=== PATIENT | female | born 1960 | race Caucasian/White ===

== ENCOUNTER 2019-09-21 10:47 | Outpatient (CLI) | payer BC, SELFPAY ==
--- NOTE | ~2019-09-21 | MM_ITS ---
EXAMINATION: MM screening [facility] BI w javan HISTORY: Screening mammogram TECHNIQUE: Craniocaudal and mediolateral oblique 3-D tomosynthesis images were obtained and synthetic 2-D images were generated. CAD analysis was submitted and interpreted. COMPARISON: 06/27/2018, 07/19/2014 bilateral digital screening mammogram examinations BREAST PARENCHYMAL COMPOSITION: The breasts are heterogeneously dense, which may obscure small masses . FINDINGS: Possible 4 mm mass is suggested in the lower mid right breast posteriorly (CC Tomosynthesis image 16/80). Diagnostic right mammogram and right breast ultrasound examination are recommended. Otherwise there is no evidence of suspicious mass, calcification, or architectural distortion to sugg est malignancy in either breast. There has been no other suspicious interval change. IMPRESSION: 1. 4 mm mass suggested in the lower posterior mid right breast 2. Diagnostic right mammogram and right breast ultrasound examination are recommended. BI-RADS Category 0: Incomplete: Needs additional imaging evaluation. Reviewed, dictated and finalized at location A. IMPRESSION: 1. 4 mm mass suggested in the lower posterior mid right breast 2. Diagnostic right mammogram and right breast ultrasound examination are recom mended. BI-RADS Category 0: Incomplete: Needs additional imaging evaluation.
== END 2019-09-21 10:48 | disposition home or self-care (01) ==
PROVIDERS: PCP Family Medicine; Visit Provider Obstetrics & Gynecology Gynecology
DX: Z12.31 Encounter for screening mammogram for malignant neoplasm of breast (principal); R92.8 Other abnormal and inconclusive findings on diagnostic imaging of breast
CPT/HCPCS: 77063; 77067

== ENCOUNTER → 2019-10-01 09:23 | Outpatient (CLI) | payer BC, SELFPAY ==
--- NOTE | ~2019-10-01 | MMUS_ITS ---
EXAMINATION: MM diagnostic mammo unilat RT, US breast RT complete HISTORY: Follow-up possible right breast mass TECHNIQUE: Additional 3-D tomosynthesis images of the right breast were performed and synthetic 2-D i mages were generated. CAD analysis was submitted and interpreted. High resolution right breast ultras ound was performed. COMPARISON: Comparison to multiple prior studies sequentially, with oldest reviewed study dated 05/2014. FINDINGS: MAMMOGRAPHIC FINDINGS: The breasts are heterogenously dense, which may obscure small masses. There are no suspicious masses, calcifications or architectural distortion is identified. ULTRASOUND: High-resolution right breast ultrasound: Normal heterogeneous echotexture without focal solid or cyst ic mass. IMPRESSION: 1. No mammographic or sonographic evidence for malignancy in the right breast. 2. Routine yearly screening mammogram and regular clinical breast examination are recommended. BI-RADS Category 1: Negative Reviewed, dictated and finalized at location A. IMPRESSION: 1. No mammographic or sonographic evidence for malignancy in the right breast. 2. Routine yearly screening mammogram and regular clinical breast examination a re recommended. BI-RADS Category 1: Negative
== END ==
PROVIDERS: Visit Provider Obstetrics & Gynecology Gynecology
DX: R92.8 Other abnormal and inconclusive findings on diagnostic imaging of breast (principal)
CPT/HCPCS: 76641; 77065

== ENCOUNTER → 2020-12-10 10:44 | Outpatient (CLI) | payer BC, SELFPAY ==
--- NOTE | ~2020-12-10 | MM_ITS ---
EXAMINATION: MM screening trace BI w javan HISTORY: Screening TECHNIQUE: Craniocaudal and mediolateral oblique 3-D tomosynthesis images were obtained and synthetic 2-D images were generated. CAD analysis was submitted and interpreted. COMPARISON: Comparison to multiple prior studies sequentially, with oldest reviewed study dated 05/2014. BREAST PARENCHYMAL COMPOSITION: The breasts are heterogeneously dense, which may obscure small masses . FINDINGS: There is no evidence of suspicious mass, calcification, or architectural distortion to sugg est malignancy in either breast. There has been no suspicious interval change. IMPRESSION: 1. No mammographic evidence of malignancy. 2. Recommend routine screening mammography in one year. BI-RADS Category 1: Negative Reviewed, dictated and finalized at location A.
== END ==
PROVIDERS: Visit Provider Obstetrics & Gynecology Gynecology
DX: Z12.31 Encounter for screening mammogram for malignant neoplasm of breast (principal)
CPT/HCPCS: 77063; 77067

== ENCOUNTER → 2021-01-24 18:10 | Outpatient (CLI) | payer BC, SELFPAY ==
--- NOTE | ~2021-01-24 | DEXA_ITS ---
Bone Density Report Name: Estrella Thompson Age: 60 Sex: Female Ethnicity: White Date of : 1960 Indication: postmenopausal; screening for osteoporosis; height loss; Referring Provider: FELICE ROMERO Study: Bone densitometry was performed. Exam Date: January 24, 2021 Accession number: [id number] Bone Density: Region BMD T-score Z-score Classification AP Spine (L1-L4) 1.198 1.4 2.7 Normal Femoral Neck (Left) 0.783 -0.6 0.7 Normal Total Hip (Left) 1.053 0.9 1.8 Normal Femoral Neck (Right) 0.848 0.0 1.2 Normal Total Hip (Right) 1.023 0.7 1.6 Normal Total Hip Mean 1.038 0.8 1.7 Normal World Health Organization criteria for BMD impression classify patients as: Normal (T-score at or above -1.0), Osteopenia (T-score between -1.0 and -2.5), or Osteoporosis (T-score at or below -2.5). 10-year Fracture Risk: FRAX not reported because: All T-scores for Spine Total, Hip Total, Femoral Neck at or above -1.0 Previous Exams: Region Exam Age BMD T-score BMD Change BMD Change Date g/cm2 vs Baseline vs Previous AP Spine(L1-L4) 01/24/2021 60 1.198 1.4 -0.007 -0.007 06/27/2018 57 1.204 1.4 Total Hip(Left) 01/24/2021 60 1.053 0.9 -0.023 -0.023 06/27/2018 57 1.075 1.1 Total Hip(Right) 01/24/2021 60 1.023 0.7 -0.024 -0.024 06/27/2018 57 1.047 0.9 *Denotes significance at 95% confidence level, LSC for AP Spine = 0.022 g/cm2, LSC for Total Hip = 0.027 g/cm2 Clinical Information Provided by Patient: Patient maximum height was 67.5 Menopause Age: 52 Drinks caffeinated beverages Onset of menses at age 15 Number of children 1 Impression: The patient has normal bone mass. No significant bone loss was observed. Discussion: BONE DENSITY IS ABOVE THE MINIMUM DESIRABLE LEVEL AT ALL SKELETAL SITES TESTED. This patient?s bone mineral density is above the minimum desirable level (T-score -1.0 or better) at all sites measured. The patient should follow a healthful lifestyle (good nutrition with adequate calcium and vitamin D, and appropriate weight-bearing exercise). Follow-Up: Consider repeating this study in 5 years or sooner if there is some new clinical indication. Reported by: CAMERON on 01/24/2021 6:29:00 PM. Reviewed, dictated and finalized at location APanfilo ESCOBEDO
== END ==
PROVIDERS: Visit Provider Obstetrics & Gynecology Gynecology
DX: Z78.0 Asymptomatic menopausal state (principal)
CPT/HCPCS: 77080

== ENCOUNTER → 2022-05-24 16:00 | Outpatient (CLI) | payer BC, SELFPAY ==
--- NOTE | ~2022-05-24 | MM_ITS ---
EXAMINATION: MM screening trace BI w javan HISTORY: Screening mammogram TECHNIQUE: Craniocaudal and mediolateral oblique 3-D tomosynthesis images were obtained and synthetic 2-D images were generated. CAD analysis was submitted and interpreted. COMPARISON: 12/10/2020 bilateral screening mammogram 10/06/2019 diagnostic right mammogram and complete right breast ultrasound, reported negative 09/21/2019, 06/27/2018 bilateral screening mammogram examinations BREAST PARENCHYMAL COMPOSITION: The breasts are heterogeneously dense, which may obscure small masses . FINDINGS: There is no evidence of suspicious mass, calcification, or architectural distortion to sugg est malignancy in either breast. There has been no suspicious interval change. IMPRESSION: 1. No mammographic evidence of malignancy. 2. Recommend routine screening mammography in one year. BI-RADS Category 1: Negative Reviewed, dictated and finalized at location A. OR PAYROLL ADMINISTRATOR
== END ==
PROVIDERS: PCP Obstetrics & Gynecology Gynecology; Visit Provider Obstetrics & Gynecology Gynecology
DX: Z12.31 Encounter for screening mammogram for malignant neoplasm of breast (principal)
CPT/HCPCS: 77063; 77067

== ENCOUNTER 2023-08-09 11:10 | Outpatient (CLI) | payer BC, SELFPAY ==
--- NOTE | ~2023-08-09 | MM_ITS ---
EXAMINATION: MM screening trace BI w javan HISTORY: Screening mammogram TECHNIQUE: Craniocaudal and mediolateral oblique 3-D tomosynthesis images were obtained and synthetic 2-D images were generated. Bilateral lateral rotated CC views. CAD analysis was submitted and interp reted. COMPARISON: May 24, 2022, December 10, 2020, 09/21/2019, 06/27/2018, 07/02/2014 bilateral screening mammogram examinations BREAST PARENCHYMAL COMPOSITION: The breasts are heterogeneously dense, which may obscure small masses . FINDINGS: Focal approximately 4.9 mm asymmetric opacity is noted deep in the posterior mid outer left breast, not evident on prior mammographic examinations. Diagnostic left mammogram and left breast ul trasound examination recommended. Otherwise there is no evidence of suspicious mass, calcification, or architectural distortion to sugg est malignancy in either breast. There has been no other suspicious interval change. IMPRESSION: 1. Focal approximately 4.9 mm asymmetric opacity in the posterior outer mid left breast 2. Diagnostic left mammogram and left breast ultrasound examination recommended BI-RADS Category 0: Incomplete: Needs additional imaging evaluation. Reviewed, dictated and finalized at location B. IMPRESSION: 1. Focal approximately 4.9 mm asymmetric opacity in the posterior outer mid lef t breast 2. Diagnostic left mammogram and left breast ultrasound examination recommended BI-RADS Category 0: Incomplete: Needs additional imaging evaluation.
== END 2023-08-09 11:11 ==
LOC: MICIMG 11:13
PROVIDERS: PCP Nurse Practitioner; Visit Provider Nurse Practitioner
DX: Z12.31 Encounter for screening mammogram for malignant neoplasm of breast (principal); R92.8 Other abnormal and inconclusive findings on diagnostic imaging of breast
CPT/HCPCS: 77063; 77067

== ENCOUNTER 2023-09-20 08:02 | Outpatient (CLI) | payer BC, SELFPAY ==
--- NOTE | ~2023-09-20 | MMUS_ITS ---
EXAMINATION: MM diagnostic trace LT w javan, US breast LT complete HISTORY: Follow-up focal asymmetric opacity of the left breast TECHNIQUE: Additional 3-D tomosynthesis images of the left breast were performed and synthetic 2-D im ages were generated. CAD analysis was submitted and interpreted. High resolution complete left breast ultrasound was performed. COMPARISON: Comparison to multiple prior studies sequentially, with oldest reviewed study dated 06/27. BREAST PARENCHYMAL COMPOSITION: Dense: The breasts are heterogeneously dense, which may obscure small masses FINDINGS: MAMMOGRAPHIC FINDINGS: There is a small mass in the upper outer quadrant of the left breast posterior depth. There are no wood spicious calcifications or architectural distortion. ULTRASOUND: Complete US of all 4 quadrants of the left breast and retroareolar region was reviewed. At 2:00, 5 cm from the nipple there is an oval hypoechoic 6 mm mass, likely a benign cyst complicated cyst. This l ikely corresponds to the mammographic finding. IMPRESSION: 1. Probable benign complicated cyst of the left breast at 2:00, 5 cm from the nipple. 2. Recommend 6 month follow-up diagnostic left mammogram and Limited left breast ultrasound. BI-RADS category 3, probably benign findings. Reviewed, dictated and finalized at location B. IMPRESSION: 1. Probable benign complicated cyst of the left breast at 2:00, 5 cm from the n ipple. 2. Recommend 6 month follow-up diagnostic left mammogram and Limited left breas t ultrasound. BI-RADS category 3, probably benign findings.
== END 2023-09-20 08:03 ==
LOC: MICIMG 08:03
PROVIDERS: PCP Obstetrics & Gynecology Gynecology; Visit Provider Obstetrics & Gynecology Gynecology
DX: R92.8 Other abnormal and inconclusive findings on diagnostic imaging of breast (principal)
CPT/HCPCS: 76641; 77061; 77065; G0279

== ENCOUNTER 2024-05-07 00:37 | Day surgery (SDC) | payer BC, SELFPAY ==
[2024-04-24 15:44] VITALS: BMI 24.4
--- OUTSIDE RECORDS SUMMARY | 2024-05-07 00:40 | XMS_ITS | Clinical Summary ---
Author Organization [facility] [address] Address [address] [place] [address] Care Team Providers Care Stenciling Machine Tender Name Role Phone Cathy Almeida MD Primary Care Provider Allergies No known active allergies Medications cholecalciferol (VITAMIN D-3) 2,000 unit capsule Take 1 capsule (2,000 Units total) by mouth daily 30 capsule 01/12/2019 Active rosuvastatin (CRESTOR) 20 mg tabletIndication s:High cholesterol TAKE 1 TABLET BY MOUTH NIGHTLY 90 tablet 3 02/18/2023 Active Active Problems Problem Noted Date Diagnosed Date High cholesterol 05/30/2022 Resolved Problems Problem Noted Date Diagnosed Date Resolved Date Complex tear of medial menis cus of left knee as current injury 12/25/2018 05/30/2022 Overview (12/25/2018): Added automatically from request for surgery [id number] Immunizations Name Administration Dates Next Due Tdap 11/09/2023 Surgical History Surgery Date Site/Laterality Comments WISDOM TOOTH EXTRACTION MENISCECTOMY Left COLONOSCOPY 12/09/2018 with polypectomy Medical History Medical History Date Comments PONV (postoperative nausea a nd vomiting) Colon polyps High cholesterol Complex tear of medial menis cus of left knee as current injury 12/25/2018 Added automatically from r equest for surgery [id number] Family History Medical History Relation Name Comments Alzheimer's disease Father Hypertension Father Colon cancer Maternal Grandmother Colon cancer Mother Coronary artery disease Mother Hypertension Mother Relation Name Status Comments Father Maternal Grandmother Mother Social History Tobacco Use Types Packs/Day Years Used Date Smoking Tobacco: Never Smokeless Tobacco: Never Tobacco Cessation:Counseling Given: Not Answered Alcohol Use Standard Drinks/Week Comments Yes 7 (1 standard drink = 0.6 oz pur e alcohol) PHQ-2 Answer Date Recorded PHQ-2 Total Score (If total score is 3 or more points, staff should administer the PHQ-9) 0 12/26/2021 Comments No Sex and Gender Information Value Date Recorded Sex Assigned at Not on file Legal Sex Female 12:49 PM HEAVY FORGER HELPER Gender Identity Not on file Sexual Orientation Not on file Obstetrics History Last Filed Vital Signs Vital Sign Reading Time Taken Comments Blood Pressure 108/70 05/30/2022 2:08 PM HEAVY FORGER HELPER Pulse 71 05/30/2022 2:08 PM HEAVY FORGER HELPER Temperature 36.5 C (97.7 F) 01/20/2019 10:29 AM CDT Respiratory Rate 14 10/19/2021 10:17 AM CDT Oxygen Saturation 99% 01/20/2019 10:29 AM CDT Inhaled Oxygen Concentration - - Weight 73 kg (161 lb) 05/30/2022 2:08 PM HEAVY FORGER HELPER Height 168.9 cm (5' 6.5 ) 05/30/2022 2:08 PM HEAVY FORGER HELPER Body Mass Index 25.6 05/30/2022 2:08 PM HEAVY FORGER HELPER Plan of Treatment Health Maintenance Due Date Last Done Comments Hepatitis B Screening 11/09/1979 Zoster Vaccine (1 of 2) 11/09/2011 Cervical Cancer Screening 04/02/20192018, 04/02/2018 Breast Cancer Screening-Mammogram 12/10/2021 12/10/2020, 12/10/2020 Depression Screening 12/26/2022 12/26/2021 Regular Well Visit/Exam 18-64 12/26/2022 12/26/2021 Covid-19 Vaccine ( season) 2023 03/14/2021, 07/14/2020, 06/17/2020 Influenza Vaccine (#1) 2023 Colon Cancer Screening-Colonoscopy 12/10/2023 12/09/2018, 12/09/2018 DTaP/Tdap/Td Vaccine (2 - Td or Tdap) 2033 11/09/2023 Colon Cancer Screening-CT Colonography Discontinued 12/09/2018, 12/09/2018 Colon Cancer Screening-DNA Stool Discontinued 12/09/2018, 12/09/2018 Colon Cancer Screening-FIT Discontinued 12/09, 12/09/2018 Colon Cancer Screening-Sigmoidoscopy Discontinued 12/09/2018, 12/09/2018 Hepatitis C Screening Completed 12/26/2021 Pneumococcal vaccine <65 Aged Out No longer eligible based on patient's age to complete this topic Procedures Procedure Name Priority Date/Time Associated Diagnosis Comments HEPATITIS C ANTIBODY Routine 12/26/2021 9:27 AM CDT Routine physical examination Encounter for hepatitis C screening test for low risk patient MAMMOGRAPHY Routine 12/10/2020 COLONOSCOPY Routine 12/09/2018 PAP SMEAR WITH HPV Routine 04/02/2018 from Last 3 Months or Most Recently Relevant to Health Maintenance Results * Hepatitis C antibody (12/26/2021 9:27 AM CDT) Hep C Ab Nonreactive Nonreactive [facility] Comment: Interpretive Data Nonreactive: Antibodies to HCV not detected. Does NOT exclude the possibility of recent exposure to HCV. Equivocal: Equivocal for HCV antibodies. Supplemental molecular testing will be automatically performed to determine infection status in accordance with current CDC screening recommendations. Reactive: Positive for HCV antibodies. This may represent current or past HCV infection. Supplemental molecular testing will be automatically performed to determine current infection status in accordance with current CDC screening recommendations. Interpretive data was last revised on 2019. Blood 12/26/2021 9:27 AM CDT 12/26/2021 2:31 PM CDT us Cathy Almeida MD LAB MICROBIOLOGY - GEN ERAL ORDERABLES Final Result [facility] [address] Department [place] [address] * MAMMOGRAPHY (12/10/2020) Mammography Normal 12/10/2020 Historical Provider HEALTH MAINTENANCE Final Result * COLONOSCOPY (12/09/2018) Scribed Colonoscopy Abnormal Comment:adenomatous polyps. repeat in 5 yrs per report 12/09/2018 Historical Provider HEALTH MAINTENANCE Final Result * PAP SMEAR WITH HPV (04/02/2018) Scribed Pap Smear w/HPV Normal 04/02/2018 Historical Provider HEALTH MAINTENANCE Final Result from Last 3 Months or Most Recently Relevant to Health Maintenance Insurance [email or web address] OOS [email or web address] Care Teams Stenciling Machine Tender Relationship Specialty Start Date End Date Cathy Almeida MD PCP - General Family Practice 12/26/21
--- OUTSIDE RECORDS SUMMARY | 2024-05-07 00:40 | XMS_ITS | Referral Summary ---
Author Organization [facility] Address [address] [place] [address] Care Team Providers Care Telephone Triage Nurse Name Role Phone Brenna Tesfaye MD Primary Care Provider [phone] Source Comments [facility],non-owned Affiliates and Associated Physician Practices is amultiple site organization consisting of ambulatory clinics and hospital sitesin [place], [place], [place] and [place]. This disclosure is being madepursuant to the Care Everywhere program and may not contain all information available regarding this patient. Last updated 17.[employer] Allergies No known active allergies Medications Be aware that medications may not be up to date on this document. Always verify current medications with the patient. No known medications Social History Tobacco Use Types Packs/Day Years Used Date Smoking Tobacco: Never Smokeless Tobacco: Never Sex and Gender Information Value Date Recorded Sex Assigned at Not on file Gender Identity Not on file Sexual Orientation Not on file Last Filed Vital Signs Vital Sign Reading Time Taken Comments Blood Pressure 102/58 05/15/2017 9:28 AM COMPANY MARKER Pulse 87 05/15/2017 9:28 AM COMPANY MARKER Temperature 37.2 C (99 F) 05/15/2017 9:28 AM COMPANY MARKER Respiratory Rate 16 05/15/2017 9:28 AM COMPANY MARKER Oxygen Saturation 97% 05/15/2017 9:28 AM COMPANY MARKER Inhaled Oxygen Concentration - - Weight 69.9 kg (154 lb) 05/15/2017 9:28 AM COMPANY MARKER Height 170.2 cm (5' 7 ) 05/15/2017 9:28 AM COMPANY MARKER Body Mass Index 24.12 05/15/2017 9:28 AM COMPANY MARKER Plan of Treatment Not on file Care Teams Telephone Triage Nurse Relationship Specialty Start Date End Date Brenna Tesfaye MD [address] [place] [address] [place] [phone] PCP - General 12/10/18
--- OUTSIDE RECORDS SUMMARY | 2024-05-07 00:40 | XMS_ITS | Patient Health Summary ---
Author Organization [facility] [employer] Address [address] [place] [address] Care Team Providers Care Dry Color Tester Name Role Phone Brenna Tesfaye MD Primary Care Provider [phone] Note from [facility] [employer] [facility] [employer],non-owned Affiliates and Associated Physician Practices is amultiple site organization consisting of ambulatory clinics and hospital sitesin [place], [place], [place] and [place]. This disclosure is being madepursuant to the Care Everywhere program and may not contain all information available regarding this patient. Last updated 17.[employer] Allergies No known active allergies Medications Be [...] Comments Blood Pressure 102/58 05/15/2017 9:28 AM NUCLEAR REACTOR ENGINEER Pulse 87 05/15/2017 9:28 AM NUCLEAR REACTOR ENGINEER Temperature 37.2 C (99 F) 05/15/2017 9:28 AM NUCLEAR REACTOR ENGINEER Respiratory Rate 16 05/15/2017 9:28 AM NUCLEAR REACTOR ENGINEER Oxygen Saturation 97% 05/15/2017 9:28 AM NUCLEAR REACTOR ENGINEER Inhaled Oxygen Concentration - - Weight 69.9 kg (154 lb) 05/15/2017 9:28 AM NUCLEAR REACTOR ENGINEER Height 170.2 cm (5' 7 ) 05/15/2017 9:28 AM NUCLEAR REACTOR ENGINEER Body Mass Index 24.12 05/15/2017 9:28 AM NUCLEAR REACTOR ENGINEER Procedures * DERMATOPATHOLOGY(Performed 05/29/2023) * INFLUENZA A+B - POINT OF CARE (AMB)(Performed 05/15/2017) Performed for Influenza B Results * DERMATOPATHOLOGY (05/29/2023 12:00 AM NUCLEAR REACTOR ENGINEER) Case Report Dermatopathology Report Case: [id number] Authorizing Provider: Ilan Noel MD Collected: 05/29/2023 12:00 AM Ordering Location: [facility] - Received: 06/03/2023 07:36 AM DermPath Lab Pathologist: Jade Hughes MD Specimen: Skin, dorsal distal right forearm 2:44 PM [facility] Final Diagnosis Specimen A. SKIN, dorsal distal right forearm: LICHEN PLANUS-LIKE KERATOSIS (BENIGN LICHENOID KERATOSIS) (L82.1) 2:44 PM [facility] DERMATOPATH[facility]OR[facility]ORY Clinical History R/O BCC vs ISK 2:44 PM [facility] Gross Description Specimen A: Received is one formalin filled container labeled with the patients name and designated dorsal distal right forearm. The specimen consists of a shave removal measuring [id number] mm. Jar 0. 2:44 PM [facility] DERMATOPATHOLOGY [facility]ORY Microscopic Description Specimen A. SKIN, dorsal distal right forearm: The epidermis is mildly acanthotic. There is a lichenoid infiltrate with vacuolar changes of basilar keratinocytes and scattered necrotic keratinocytes. 2:44 PM [facility] DERMATOPATHOLOGY [facility]OR[facility]ORY Disclaimer An external and internal positive and negative controls are appropriate for the histochemical, immunohistochemical and immunofluorescence stain(s) in this case (if any), except where stated explicitly. The performance characteristics of the stain(s) cited in this report were developed and its performance characteristic determined by the Dermatopathology Laboratory at [facility], directed by Dr. Felicita Hughes. These tests need not be, and therefore are not, approved by the [place] Food and Drug Administration. The tests are used for clinical purposes. Billing Codes Specimen Charges Stain Charges 26633 1 2:44 PM [facility]ERMATOPATHOLOG[facility]ORY Embedded Images 2:44 PM [facility]MATOP[facility] Pathology/Cytolog y TISSUE SPECIMEN FROM SKIN / Unknown 05/29/2023 06/03/2023 7:36 AM NUCLEAR REACTOR ENGINEER Ilan Noel MD LAB - PATHOLOGY/CYTO LOGY ORDERABLES DERMATOPATHOLOGY LABORATORY [facility] - Department of Dermatology [facility] [address] [place] [address], [address] [phone] * (ABNORMAL) INFLUENZA A+B - POINT OF CARE (AMB) (05/15/2017 9:33 AM NUCLEAR REACTOR ENGINEER) Influenza A Antigen Rapid Negative Negative Influenza B Antigen Rapid Positive(A) Negative Influenza Internal Control Present NEGATIVE - POSITIVE Influenza Lot Number [id number] Influenza Expiration Date 01 21 2019 Other NASOPHARYNGEAL SWAB / Unknown 05/15/2017 9:33 AM NUCLEAR REACTOR ENGINEER Tanvir Decker HEARING AID REPAIR TECHNICIAN-RADIOLOGIC TECHNOLOGIST CHIEF LAB - POINT OF CA RE ORDERABLES Care Teams Dry Color Tester Relationship Specialty Start Date End Date Brenna Tesfaye MD [address] [place] [address] [phone] PCP - General 12/10/18
--- OUTSIDE RECORDS SUMMARY | 2024-05-07 00:40 | XMS_ITS | Encounter Summary ---
Author Organization [facility] Address [address] [place] [address] Care Team Providers Care Ignition Specialist Name Role Phone Brenna Tesfaye MD Primary Care Provider Encounter Details Date Type Department Care Team (Late st Contact Info) Description 06/03/2023 Lab Requisition [facility] - DermPath Lab [address] [place] [id number] Ilan Noel MD [address] [place] [address] Social History Tobacco Use Types Packs/Day Years Used Date Smoking Tobacco: Never Smokeless Tobacco: Never Sex and Gender Information Value Date Recorded Sex Assigned at Not on file Gender Identity Not on file Sexual Orientation Not on file documented as of this encounter Plan of Treatment Not on file documented as of this encounter Procedures Procedure Name Priority Date/Time Associated Diagnosis Comments DERMATOPATHOLOGY Routine 05/29/2023 12:0 0 AM REPAIR ARMATURE WINDER documented in this encounter Results * DERMATOPATHOLOGY (05/29/2023 12:00 AM REPAIR ARMATURE WINDER) Case Report Dermatopathology Report Case: [id number] Authorizing Provider: Ilan Noel MD Collected: 05/29/2023 12:00 AM Ordering Location: [facility] - Received: 06/03/2023 07:36 AM DermPath Lab Pathologist: Jade Hughes MD Specimen: Skin, dorsal distal right forearm 2:44 PM [facility] DERMATOPATHOLOGY LABORATORY Final Diagnosis Specimen A. SKIN, dorsal distal right forearm: LICHEN PLANUS-LIKE KERATOSIS (BENIGN LICHENOID KERATOSIS) (L82.1) 2:44 PM [facility] DERMATOPATHOLOGY LABORATORY Clinical History R/O BCC vs ISK 2:44 PM [facility] DERMATOPATHOLOGY LABORATORY Gross Description Specimen A: Received is one formalin filled container labeled with the patients name and designated dorsal distal right forearm. The specimen consists of a shave removal measuring [id number] mm. Jar 0. 2:44 PM [facility] DERMATOPATHOLOGY LABORATORY Microscopic Description Specimen A. SKIN, dorsal distal right forearm: The epidermis is mildly acanthotic. There is a lichenoid infiltrate with vacuolar changes of basilar keratinocytes and scattered necrotic keratinocytes. 2:44 PM [facility] DERMATOPATHOLOGY LABORATORY Disclaimer An external and internal positive and negative controls are appropriate for the histochemical, immunohistochemical and immunofluorescence stain(s) in this case (if any), except where stated explicitly. The performance characteristics of the stain(s) cited in this report were developed and its performance characteristic determined by the Dermatopathology Laboratory at [facility], directed by Dr. Felicita Hughes. These tests need not be, and therefore are not, approved by the [place] Food and Drug Administration. The tests are used for clinical purposes. Billing Codes Specimen Charges Stain Charges 58761 1 2:44 PM [facility] DERMATOPATHOLOGY LABORATORY Embedded Images 2:44 PM [facility] DERMATOPATHOLOGY LABORATORY Pathology/Cytolog y TISSUE SPECIMEN FROM SKIN / Unknown 05/29/2023 06/03/2023 7:36 AM REPAIR ARMATURE WINDER Ilan Noel MD LAB - PATHOLOGY/CYTO [facility] ORDER[facility]LES DERMATOPATHOLOGY LABORATORY [facility] - Department of Dermatology [address], [address] [phone] documented in this encounter Visit Diagnoses Not on filedocumented in this encounter Care Teams Ignition Specialist Relationship Specialty Start Date End Date Brenna Tesfaye MD NPI: [id number] [place] [address] [address] [place] [id number] PCP - General 12/10/18 documented as of this encounter
--- OUTSIDE RECORDS SUMMARY | 2024-05-07 00:40 | XMS_ITS | Referral Summary ---
Author Organization [facility] Address [address] [place] [address] Care Team Providers Care Advisor Advocate Angel Co Founder Name Role Phone Cathy Almeida MD Primary [...] (12/25/2018): Added automatically from request for surgery [id number] Immunizations Name Administration Dates Next Due Tdap 11/09/2023 Social History Tobacco Use Types Packs/Day Years [...] on file Legal Sex Female 12:49 PM CURRICULUM AND ASSESSMENT COORDINATOR Gender Identity Not on file Sexual Orientation Not on file Last Filed Vital Signs Vital Sign Reading Time Taken Comments Blood Pressure 108/70 05/30/2022 2:08 PM CURRICULUM AND ASSESSMENT COORDINATOR Pulse 71 05/30/2022 2:08 PM CURRICULUM AND ASSESSMENT COORDINATOR Temperature 36.5 C (97.7 F) 01/20/2019 10:29 AM CDT Respiratory Rate 14 10/19/2021 10:17 AM CDT Oxygen Saturation 99% 01/20/2019 10:29 AM CDT Inhaled Oxygen Concentration - - Weight 73 kg (161 lb) 05/30/2022 2:08 PM CURRICULUM AND ASSESSMENT COORDINATOR Height 168.9 cm (5' 6.5 ) 05/30/2022 2:08 PM CURRICULUM AND ASSESSMENT COORDINATOR Body Mass Index 25.6 05/30/2022 2:08 PM CURRICULUM AND ASSESSMENT COORDINATOR Plan of Treatment Not on file Procedures Procedure Name Priority Date/Time Associated Diagnosis [...] CDT) Hep C Ab Nonreactive Nonreactive [facility] Comment: Interpretive Data Nonreactive: Antibodies to HCV [...] 9:27 AM CDT 12/26/2021 2:31 PM CDT Cathy Almeida MD LAB MICROBIOLOGY - [place] [address] [address] [facility] [place] [address] * MAMMOGRAPHY (12/10/2020) Mammography Normal 12/10/2020 Historical Provider HEALTH MAINTENANCE Final Result * COLONOSCOPY (12/09/2018) Scribed Colonoscopy Abnormal Comment:adenomatous polyps. repeat in 5 yrs per report 12/09/2018 Historical Provider HEALTH MAINTENANCE Final Result * PAP SMEAR WITH HPV (04/02/2018) Scribed Pap Smear w/HPV Normal 04/02/2018 Historical Provider HEALTH MAINTENANCE Final Result from Last 3 Months or Most Recently Relevant to Health Maintenance Insurance [employer] O[employer] ACCESS OOS Care Teams Advisor Advocate Angel Co Founder Relationship Specialty Start Date End Date Cathy Almeida MD PCP - General Family Practice 12/26/21
--- OUTSIDE RECORDS SUMMARY | 2024-05-07 00:40 | XMS_ITS | Clinical Summary ---
Author Organization [facility] Address [address] [place] [address] Care Team Providers Care Master Fire Control Technician Name Role Phone Brenna Tesfaye MD Primary Care Provider [phone] Source Comments [facility],non-owned Affiliates and Associated Physician Practices is amultiple site organization consisting of ambulatory clinics and hospital sitesin [place], [place], [place] and [place]. This disclosure is being madepursuant to the Care Everywhere program and may not contain all information available regarding this patient. Last updated 17.[email or web address] Allergies No known active allergies Medications Be aware that medications may not be up to date on this document. Always verify current medications with the patient. No known medications Family History Medical History Relation Name Comments Alzheimer's Disease Father Hypertension Father Cancer - Colon Maternal Grandmother Cancer - Colon Mother Hypertension Mother Relation Name Status Comments [...] Comments Blood Pressure 102/58 05/15/2017 9:28 AM DESIGN SALES CONSULTANT Pulse 87 05/15/2017 9:28 AM DESIGN SALES CONSULTANT Temperature 37.2 C (99 F) 05/15/2017 9:28 AM DESIGN SALES CONSULTANT Respiratory Rate 16 05/15/2017 9:28 AM DESIGN SALES CONSULTANT Oxygen Saturation 97% 05/15/2017 9:28 AM DESIGN SALES CONSULTANT Inhaled Oxygen Concentration - - Weight 69.9 kg (154 lb) 05/15/2017 9:28 AM DESIGN SALES CONSULTANT Height 170.2 cm (5' 7 ) 05/15/2017 9:28 AM DESIGN SALES CONSULTANT Body Mass Index 24.12 05/15/2017 9:28 AM DESIGN SALES CONSULTANT Plan of Treatment Health Maintenance Due Date Last Done Comments COLOGUARD (AGES 45-75) - COL ON CA SCREENING 1961 COLON MONITORING 1961 COLONOSCOPY - COLON CA SCREENING 1961 CT COLONOGRAPHY - COLON CA SCREENING 1961 Colorectal Cancer Screening 1961 FIT - COLON CA SCREENING 1961 FLEX SIG - COLON CA SCREENING 1961 LIPID TESTING 1961 MAMMOGRAM 1961 PAP SMEAR 1961 HIV SCREENING 1976 HEPATITIS C SCREENING 11/04/1979 DTAP/TDAP/TD VACCINES (1 - Tdap) 1980 PNEUMOCOCCAL VACCINE 50+ (1 of 1 - PCV) 11/09/2011 ZOSTER VACCINE (1 of 2) 11/09/2011 COVID-19 VACCINE (1 - 2023-2 5 season) 2023 INFLUENZA VACCINE (#1) 2023 DEPRESSION SCREENING 04/01/2024 Respiratory Syncytial Virus (RSV) Vaccine Pt: or over 60 yrs (1 - 1-dose 75+ series) 2036 HEPATITIS B VACCINE Aged Out No longe r eligible based on patient's age to complete this topic HIB VACCINE Aged Out No longer eligi ble based on patient's age to complete this topic HPV VACCINE Aged Out No longer eligi ble based on patient's age to complete this topic MENINGOCOCCAL (Group B) VACCINE Aged Out No longer eligible based on patient's age to complete this topic MENINGOCOCCAL VACCINE Aged Out No bárbara boston eligible based on patient's age to complete this topic PNEUMOCOCCAL VACCINE Aged Out No long er eligible based on patient's age to complete this topic Care Teams Master Fire Control Technician Relationship Specialty Start Date End Date Brenna Tesfaye MD [address] [place] [address] [place] [phone] PCP - General 12/10/18
[2024-05-07 09:43] VITALS: BP 109/76; PULSE 79; RESP 16; TEMP 36; O2SAT 97; BMI 23.8
[2024-05-07] MEDS: LACTATED RINGERS 1,000 ML 150 ML IV CONT (09:51)
--- NOTE | 2024-05-07 09:57 | WPDANESEPPF ---
Anes - Initial Pre Proc Eval Procedure: Operation Date: 05/07/24 11:00 Proposed Procedures p Colonoscopy - Miguel Schultz MD Date/Time: 05/07/24 09:57 Surgeon: Miguel Schultz MD Pre Op Diagnosis: HX of colon polyps Patient Data Age: 63 Gender: F Height: 1.7 m Weight: 69 kg Last Vital Signs Temp 36.0 C L 05/07/24 09:43 Pulse 79 05/07/24 09:43 Resp 16 05/07/24 09:43 BP 109/76 05/07/24 09:43 Pulse Ox 97 05/07/24 09:43 O2 Del Method Room Air 05/07/24 09:43 Allergies Allergy/AdvReac Type Severity Reaction Status Date / Time No Known Allergies Allergy Verified 05/07/24 09:41 Home Medications ?Medication ?Instructions ?Recorded ?Confirmed ?Type rosuvastatin 20 mg tablet 20 mg PO DAILY 04/24/24 05/07/24 History Patient hx anesthesia problems: none Family hx anesthesia problems: none Results Review: All pre-operative results and documents have been reviewed as part of the pre-operative evaluation. [facility] Past Medical History Medical History (Updated 05/07/24 @ 09:57 by Nguyễn Echeverria MD) Hyperlipidemia Surgical History Surgical History (Updated 05/07/24 @ 09:59 by Nguyễn Echeverria MD) H/O arthroscopic knee surgery H/O colonoscopy Family History Family History Mother Carcinoma of colon Grandparent Carcinoma of colon Father Family history of Alzheimer's disease Social History Social History Smoking status: Never smoker Second hand tobacco smoke exposure: Yes Alcohol intake: current Drinks per week: 2 Substance use: never Substance use type: does not use Living arrangements: alone Spiritual care concerns: No Anes - Eval Final PreProcedure Day of Procedure 05/07/24 09:57 Patient weight: normal Heart: regular rate and rhythm Lungs: clear to auscultation Airway: Mallampati scale class II Neurological: alert and oriented Last oral intake: >/= 8 hours ASA classification: II Emergent: no Anesthetic plan: proceed Anesthesia type and monitoring: general GIVS and standard monitoring Results Review: All pre-operative results and documents have been reviewed as part of the pre-operative evaluation. Informed Consent: The patient's anesthetic plan and its attendant risks and benefits were discussed with the patient/family/POA. Questions were solicited and answers provided to the satisfaction of the patient/family/POA.
--- NOTE | 2024-05-07 10:07 | PM.HPGS ---
History of Present Illness History of Present Illness Consent: Risks, benefits, and alternatives have been discussed and questions answered. Patient agrees to proceed with procedure. Chief complaint: HX of colon polyps Narrative: Estrella Thompson is a 63 year old female here for colonoscopy, last one 5 years ago, mother had colon cancer Review of Systems Review of Systems: All systems reviewed & are unremarkable except as noted in HPI and below PMFSH Past Medical History Medical History (Updated 05/07/24 @ 10:08 by Miguel Schultz MD) Family history of colon cancer in mother Hyperlipidemia Surgical History Surgical History (Updated 05/07/24 @ 09:59 by Nguyễn Echeverria MD) H/O arthroscopic knee surgery H/O colonoscopy Family History Family History Mother Carcinoma of colon Grandparent Carcinoma of colon Father Family history of Alzheimer's disease Social History Social History Smoking status: Never smoker Second hand tobacco smoke exposure: Yes Alcohol intake: current Drinks per week: 2 Substance use: never Substance use type: does not use Living arrangements: alone Spiritual care concerns: No Meds Home Medications and Allergies Home Medications ?Medication ?Instructions ?Recorded ?Confirmed ?Type rosuvastatin 20 mg tablet 20 mg PO DAILY 04/24/24 05/07/24 History Allergies Allergy/AdvReac Type Severity Reaction Status Date / Time No Known Allergies Allergy Verified 05/07/24 09:41 Vital Signs Vital Signs - 24 hr 05/07/24 09:43 Temperature 96.8 F L Pulse Rate 79 Respiratory Rate 16 Blood Pressure 109/76 Pulse Oximetry 97 Oxygen Delivery Room Air Exam Const: General: comfortable and no acute distress HENMT: Face/Nose/Sinus: Normal nares present Eyes: General: appearance normal, both eyes and all related structures Neck: Neck: no JVD Resp: Auscultation: clear to auscultation bilaterally Cardio: Rate: regular rate Rhythm: regular rhythm GI: Inspection: non-distended GI Palp: Yes Soft to palpation Skin: General skin exam: normal color Neuro: Speech: normal speech Extrem: General: normal to inspection Psych: Mental Status: mental status grossly normal Assessment and Plan Assessment and plan (1) Family history of colon cancer in mother: Code(s): Z80.0 - Family history of malignant neoplasm of digestive organs Status: Acute Assessment and Plan: colonoscopy
[2024-05-07 10:22] VITALS: BP 103/68; PULSE 76; RESP 23; O2SAT 99
[2024-05-07 10:32] VITALS: BP 103/72; PULSE 67; RESP 18; O2SAT 100
[2024-05-07 10:42] VITALS: BP 113/77; PULSE 64; RESP 19; O2SAT 100
== END 2024-05-07 10:50 | disposition home or self-care (01) ==
PROVIDERS: PCP Family Medicine Sports Medicine; Referring Provider Internal Medicine Gastroenterology; Visit Provider Internal Medicine Gastroenterology
PROC: 0DJD8ZZ Inspection of Lower Intestinal Tract, Via Natural or Artificial Opening Endoscopic (ICD-10-PCS; CPT 45378; principal; 2024-05-07 11:00)
DX: Z12.11 Encounter for screening for malignant neoplasm of colon (principal); D12.0 Benign neoplasm of cecum; K64.8 Other hemorrhoids; E78.5 Hyperlipidemia, unspecified; Z98.890 Other specified postprocedural states; Z80.0 Family history of malignant neoplasm of digestive organs
CPT/HCPCS: 45380; 88305; J2704; J7120

== ENCOUNTER 2024-06-26 08:51 | Outpatient (CLI) | payer BC, SELFPAY ==
--- NOTE | ~2024-06-26 | MMUS_ITS ---
EXAMINATION: MM diagnostic trace LT w javan, US breast LT limited HISTORY: 63-year-old woman with no significant family or personal history of breast cancer presents f or diagnostic 6 month follow-up of a probable benign complicated cyst of the left breast at 2:00, 5 cm from the nipple previously evaluated on 09/20/2023. TECHNIQUE: Additional 3-D tomosynthesis images of the left breast were performed and synthetic 2-D im ages were generated. CAD analysis was submitted and interpreted. High resolution focused left breast ultrasound was performed. COMPARISON: 09/20/2023 and dating back to 12/10/2020 BREAST PARENCHYMAL COMPOSITION:Not Dense. There are scattered areas of fibroglandular density. FINDINGS: MAMMOGRAPHIC FINDINGS: Redemonstration of the 5 mm asymmetry within the posterior upper outer left breast, seen on previous examination without significant mammographic change. ULTRASOUND: Redemonstration of the well-circumscribed avascular oval shaped structure of decreased echogenicity a t the 2:00 position of the left breast approximately 5 cm from the nipple measuring 4.9 x 2.6 x 4.9 m m, unchanged in size when compared to previous examination (taking into account changes in positionin g and technique). This focus is most consistent with a benign fibroadenoma for which 2 years of demonstrated stability is recommended. IMPRESSION: No mammographic/tomographic or sonographic evidence to suggest the presence of malignancy. Findings at the 2:00 position of the left breast which are most consistent with a benign fibroadenoma for which 2 years of ultrasound documented stability is recommended. BI-RADS category 3, probably benign findings. Resumption of yearly mammography is recommended with focused ultrasound every 6 months to complete 2 years of documented stability. Reviewed, dictated and finalized at location A. IMPRESSION: No mammographic/tomographic or sonographic evidence to suggest the presence of malignancy. Findings at the 2:00 position of the left breast which are most consistent with a benign fibroadenoma for which 2 years of ultrasound documented stability is recommended. BI-RADS category 3, probably benign findings. Resumption of yearly mammography is recommended with focused ultrasound every 6 months to complete 2 years of documented stability.
== END 2024-06-26 08:52 | disposition home or self-care (01) ==
PROVIDERS: PCP Obstetrics & Gynecology Gynecology; Visit Provider Obstetrics & Gynecology Gynecology
DX: R92.8 Other abnormal and inconclusive findings on diagnostic imaging of breast (principal)
CPT/HCPCS: 76642; 77061; 77065; G0279

== ENCOUNTER 2024-07-17 10:33 | Outpatient (CLI) | payer BC, SELFPAY ==
--- NOTE | ~2024-07-17 | MR_ITS ---
MRI of the left shoulder Technique: Axial proton-density fat-sat images, coronal proton density fat-sat and T2 fat-sat images, and sagittal T1-weighted and T2 fat-sat images were acquired. Clinical History: Pain Findings: There is mild degenerative change of the AC joint. Coracoclavicular, coracoacromial, coraco humeral ligaments are intact. Supraspinatus and infraspinatus tendons are intact, without partial or full-thickness tear. There is minimal tendinosis. Subscapularis tendon intact with mild tendinosis. Tendon of long head of the emerson ps is intact. Possible superior labral tear extending to the anterosuperior portion. There is mild glenohumeral joint degenerative change with small inferomedial humeral head osteophyte. Inferior glenohumeral ligament is intact. There are small glenohumeral joint effusion with focal flu id extending to the biceps tendon sheath. No fluid distention of the subacromial/subdeltoid bursa. No muscle atrophy or edema. Impression: Mild degenerative change of the glenohumeral joint and AC joint. Possible superior labral tear extending to anterosuperior portion. Mild tendinosis of the rotator cuff. No rotator cuff tear evident. Reviewed, dictated and finalized at location . Impression: Mild degenerative change of the glenohumeral joint and AC joint. Possible superior labral tear extending to anterosuperior portion. Mild tendinosis of the rotator cuff. No rotator cuff tear evident.
== END 2024-07-17 10:34 | disposition home or self-care (01) ==
DX: M19.012 Primary osteoarthritis, left shoulder (principal); M75.32 Calcific tendinitis of left shoulder; G89.29 Other chronic pain
CPT/HCPCS: 73221